=== PATIENT | female | born 1990 | race Caucasian/White ===

== ENCOUNTER → 2021-01-31 | Outpatient (CLI) | payer OTHER | LOC: M.CT 15:42 | PROVIDERS: ATTEND Nurse Practitioner Family | DX: N20.0 Calculus of kidney (principal); R19.8 Other specified symptoms and signs involving the digestive system and abdomen ==

== ENCOUNTER 2021-06-29 16:42 | Emergency (ER) | payer OTHER, BC ==
[~2021-06-29] VITALS: Ht 160 cm; Wt 50.8 kg
[2021-06-29] MEDS ORDERED: HYDROCODON-ACE1 EAC7 PO (17:41)
[2021-06-29 17:54] VITALS: BP 141/70
== END 2021-06-29 17:55 | disposition home or self-care (01) ==
LOC: M.ERS 16:42
DX: S52.502A Unspecified fracture of the lower end of left radius, initial encounter for closed fracture (principal); Z88.8 Allergy status to other drugs, medicaments and biological substances; W01.0XXA Fall on same level from slipping, tripping and stumbling without subsequent striking against object, initial encounter; Y93.89 Activity, other specified; Y92.091 Bathroom in other non-institutional residence as the place of occurrence of the external cause; Y99.8 Other external cause status